=== PATIENT | female | born 1965 | race Caucasian/White ===

== ENCOUNTER 2020-02-23 17:42 | Emergency (ER) | payer OTHER, SELFPAY ==
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
[2020-02-23 17:50] VITALS: BP 155/88; PULSE 70; RESP 13; TEMP 36.8; O2SAT 98
[2020-02-23] MEDS: SODIUM CHLORIDE 0.9% IV 500 ML 999 ML IV CONT (18:06)
[2020-02-23 18:58] VITALS: BP 160/95; PULSE 78; RESP 21; TEMP 36.9; O2SAT 94
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
[2020-02-23] MEDS: TETANUS,DIPHTHERIA,AC PERTUSSIS ADULT (0.5 ML) BOOSTRIX IM (19:07)
== END 2020-02-23 19:25 | disposition home or self-care (01) ==
PROVIDERS: Emergency Provider Emergency Medicine; PCP Family Medicine
DX: S09.90XA Unspecified injury of head, initial encounter (principal); S16.1XXA Strain of muscle, fascia and tendon at neck level, initial encounter; S63.283A Dislocation of proximal interphalangeal joint of left middle finger, initial encounter; V19.9XXA Pedal cyclist (driver) (passenger) injured in unspecified traffic accident, initial encounter; Y93.55 Activity, bike riding; M47.812 Spondylosis without myelopathy or radiculopathy, cervical region
CPT/HCPCS: 26770; 70450; 70486; 72125; 73130; 90715; 96365; 99285; J0131; J7040

== ENCOUNTER 2021-01-04 14:32 | Outpatient (CLI) | payer OTHER, SELFPAY ==
--- NOTE | 2021-01-04 14:40 | ECG_ITS ---
Measurements Intervals [place] Rate: 69 P: 10 MS: 146 QRS: -13 QRSD: 90 T: 18 QT: 386 QTc: 414 Interpretive Statements SINUS RHYTHM MINIMAL Q WAVES- HIGH LATERAL LEADS BASELINE ARTIFACT- I, II, III, AVR, AVL, AVF BORDERLINE ECG Electronically Signed On 01-04-2021 14:50:21 CDT by Hudson Herron D.O.
== END 2021-01-04 14:33 | disposition home or self-care (01) ==
PROVIDERS: PCP Family Medicine; Visit Provider Physician Assistant Medical
DX: R07.89 Other chest pain (principal)
CPT/HCPCS: 93005